=== PATIENT | female | born 1960 | race Caucasian/White ===

== ENCOUNTER 2025-05-22 13:52 | Emergency (ER) | payer MEDICAID, SELFPAY ==
[2025-05-22 13:54] VITALS: BP 125/59; PULSE 90; RESP 18; TEMP 37.1; O2SAT 95; BMI 25.0
--- NOTE | 2025-05-22 13:57 | XR_ITS ---
EXAMINATION: AP chest single view TECHNIQUE: AP portable sitting chest single view Date and time: May 22, 2025 1547 hours. Comparison December 02, 2018 INDICATIONS: Positive TB skin test FINDINGS: Mild enlargement cardiac contour Interstitial disease throughout the lungs with nodular density in the lingular segment Old left-sided rib fractures Severe osteopenia IMPRESSION: Interstitial disease throughout the lungs with 14 mm nodular density in the left midlung, tuberculosis cannot be excluded based on this examination Consider high-resolution CT chest without contrast
--- NOTE | 2025-05-22 13:58 | PD.EDADULT ---
ED General RME/HPI General Chief complaint: Shortness of Breath/Dyspnea Stated complaint: TB R/O Time Seen by Provider: 05/22/25 13:56 Arrival date/time: 05/22/25 13:52 CC: Chest x-ray HPI patient presents to the ER via EMS for stable vital signs from [facility] the patient had a positive on tox test is now sent for chest x-ray. Patient is asymptomatic nontoxic-appearing and not in any acute distress. Related Data Home Medications ?Medication ?Instructions ?Recorded ?Confirmed aspirin 81 mg tablet,delayed 1 tab PO DAILY 12/31/17 12/31/17 release (Aspir-Low) isoniazid 300 mg tablet 300 mg PO DAILY 12/31/17 12/31/17 paroxetine HCl 40 mg tablet 40 mg PO QDAY 12/31/17 12/31/17 simvastatin 40 mg tablet 40 mg PO QPM 12/31/17 12/31/17 ziprasidone HCl 60 mg capsule 60 mg PO BID 12/31/17 12/31/17 albuterol sulfate 90 mcg/actuation 2 puff inhalation Q4H PRN Wheezing 01/02/18 01/02/18 aerosol inhaler (Ventolin HFA) meloxicam 15 mg tablet 15 mg PO QDAY 01/02/18 01/02/18 omeprazole 20 mg capsule,delayed 20 mg PO QDAY 01/02/18 01/02/18 release quetiapine 200 mg tablet 200 mg PO BID 01/02/18 01/02/18 Previous Rx's ?Medication ?Instructions ?Recorded insulin lispro 100 unit/mL See Rx Instructions .Route 01/02/18 subcutaneous solution (Humalog .COMPLEX #10 mL U-100 Insulin) magnesium oxide 400 mg (241.3 mg 400 mg PO BID #6 tabs 01/02/18 magnesium) tablet (MagOx) metformin 850 mg tablet 850 mg PO QDAY #0 tabs 01/02/18 collagenase clostridium histo. 250 See Rx Instructions .Route 01/14/18 unit/gram topical ointment (Santyl) .COMPLEX #1 tube amoxicillin 875 mg-potassium 1 tab PO BID #14 tabs 05/22/25 clavulanate 125 mg tablet permethrin 5 % topical cream 1 applic topical Q14D 2 doses #60 05/22/25 grams Allergies Allergy/AdvReac Type Severity Reaction Status Date / Time No Known Drug Allergies Allergy Unknown Verified 01/03/18 14:16 Review of Systems Review of Systems Narrative Review of Systems: GEN: No fever, no chills, no weight loss EYES: No discharge, no visual changes, no pain HEENT: No ear pain, no congestion, no sore throat PULM: No shortness of breath, no cough, no congestion CV: No chest pain, no dyspnea on exertion, no palpitations GI: No nausea, no vomiting, no diarrhea, no pain, no constipation : No frequency, no urgency, no dysuria MUSC/SKEL: No joint pain, no back pain SKIN: No rash PSYCH: No hallucinations, no depression HEME/LYMPH: No easy bleeding or bruising tendencies NEURO: No weakness, no headache Past Medical History Past Medical History CARDIAC: Positive Cardiac Disorders (HYPERLIPIDEMIA); Negative Congestive Heart Failure RESPIRATORY: Negative Chronic Obstructive Pulmonary Disease (COPD) GENITOURINARY: Negative Renal Disease ENDOCRINE: Positive Diabetes Mellitus Type 2; Negative Diabetes Mellitus Type 1 PSYCHO/SOCIAL: Positive Schizophrenia and Depression OTHER HISTORY: Negative Blood Transfusions Surgical History SURGICAL: Positive Section Social History SMOKING STATUS: Current every day smoker ED Exam Narrative Physical exam: [General: Not in any acute distress Head normocephalic HEENT: Within acceptable limits Neck is supple nontender Chest equal chest rise nontender to palpation Respiratory: Clear to auscultation no wheezes crackles or rubs CV: Rate rhythm is regular no murmurs rubs or clicks Abdomen is distended secondary to body habitus soft nontender no masses positive bowel sounds all 4 quadrants Back: No CVA tenderness no spinous process tenderness from cervical spine thoracic and lumbar spine Skin: Intact no petechiae rash induration ulceration or crepitus Extremities: Moving all extremity against resistance cap refill less than 2 seconds neurosensory intact Neuro: Awake alert oriented x3 Glascow coma 15 no focal deficits] Course Course Course Narrative: CT shows right upper lobe pneumonia unfortunately there is a question of whether there is a potential tuberculosis. At this time the QuantiFERON will be sent, patient will be discharged on antibiotics to have public health nurse follow-up on this patient. Quality Measures none Orders Category Date Time Status CT chest wo con Stat Exams 05/22/25 15:54 Completed XR chest 2V Stat Exams 05/22/25 13:57 Completed Quantiferon-TB* Stat Lab 05/22/25 18:40 Received Vital Signs Vital signs: Vital Signs Temperature 98.8 F 05/22/25 13:54 Pulse Rate 90 05/22/25 13:54 Respiratory Rate 18 05/22/25 13:54 Blood Pressure 125/59 L 05/22/25 13:54 Pulse Oximetry (%) 95 05/22/25 13:54 Oxygen Delivery Method Room Air 05/22/25 13:54 Discharge Plan Plan Patient Disposition: HOME (Self Care) Patient condition on transfer: Stable Prescriptions/Referrals Prescriptions/Med Rec: New permethrin 5 % cream 1 applic topical Q14D Qty: 60 0RF Rx Instructions: apply second treatment 14 days after first treatment if live lice remain amoxicillin-pot clavulanate 875-125 mg tablet 1 tab PO BID Qty: 14 0RF No Action aspirin [Aspir-Low] 81 mg Tablet,Delayed Release (Dr/Ec) 1 tab PO DAILY simvastatin 40 mg Tablet 40 mg PO QPM isoniazid 300 mg Tablet 300 mg PO DAILY paroxetine HCl 40 mg Tablet 40 mg PO QDAY ziprasidone HCl 60 mg Capsule 60 mg PO BID omeprazole 20 mg Capsule,Delayed Release(Dr/Ec) 20 mg PO QDAY albuterol sulfate [Ventolin HFA] 90 mcg/actuation Hfa Aerosol Inhaler 2 puff INHALATION Q4H PRN (Reason: Wheezing) meloxicam 15 mg Tablet 15 mg PO QDAY quetiapine 200 mg Tablet 200 mg PO BID metformin 850 mg Tablet 850 mg PO QDAY Qty: 0 0RF insulin lispro [Humalog U-100 Insulin] 100 unit/mL Solution See Rx Instructions .ROUTE .COMPLEX Qty: 10 0RF Rx Instructions: per insulin sliding scale protocol magnesium oxide [MagOx] 400 mg tablet 400 mg PO BID Qty: 6 0RF Rx Instructions: administer with meals collagenase clostridium histo. [Santyl] 250 unit/gram Ointment See Rx Instructions .ROUTE .COMPLEX Qty: 1 0RF Rx Instructions: use santyl to change right foot Drsg, Referrals: No Primary/Family,Physician [Primary Care Provider] - In 1 week Problem List Clinical Impression: Pneumonia, Scabies Patient/Caregiver Discharge Instructions Education Materials: Treating Pneumonia, Scabies Additional Instructions: Take the medications as prescribed, use the creams for the scabies. Print Language: Thai Stand Alone Forms: Lillian Award Info., Patient Portal Info Letter PA/IRON INSTALLER Supervising Physician ANNETTE/IRON INSTALLER Supervising Physician: Britton Reece ENP MDM Clinical Information Provided by: patient and EMS Medical Records reviewed [facility] and EMS Meds/Rx considered, not ordered None Labs/Rad/Tests considered, not ordered None Chronic Illness/Social Conditions Explain: Diabetes hyperlipidemia depression schizophrenia
[2025-05-22 14:00] VITALS: PULSE 102; O2SAT 94
--- NOTE | 2025-05-22 15:54 | XR_ITS ---
Examination: CT chest, without intravenous contrast. Sagittal and coronal 2-D reconstructions. Exam date and time: May 22, 2025, 1708 hours, comparison May 26, 2018 INDICATIONS: Positive PPD test today CTDI:vol (mGy) 12.4 DLP: (mGycm) 465 Technique: Multiple 3.0 mm axial sections of the chest to been obtained. Bone and lung density settings are obtained. Sagittal and coronal 2-D reconstructions have been obtained. Low dose protocols were performed. One or more of the following dose reduction techniques were used; automated exposure control, adjustment of the mA and/or KV according to patient size, use of iterative reconstruction technique. Findings: No thoracic aortic aneurysmal dilatation Pulmonary artery segment, main pulmonary artery measures 34 mm Mild enlargement cardiac contour No paratracheal or tracheobronchial or bronchopulmonary adenopathy. Biapical parenchymal likely scarring Soft areas of pneumonia, for instance image 91 in the right upper lobe No pleural disease Severe osteopenia No visualized liver lesion End-stage left hydronephrotic sac IMPRESSION: Early pneumonia right upper lobe, differential would include active tuberculosis End-stage left hydronephrotic sac, consider CT abdomen pelvis post intravenous contrast follow-up
[2025-05-22 17:18] VITALS: BP 137/91; PULSE 87; RESP 18; TEMP 36.5; O2SAT 96
[2025-05-22 18:44] VITALS: BP 121/85; PULSE 102; RESP 18; TEMP 36.5; O2SAT 95
[2025-05-22 18:44] LABS: Quantiferon-TB* See Sep Rpt
[2025-05-22 19:21] VITALS: BP 121/85; PULSE 95; RESP 16; TEMP 36.4; O2SAT 95
--- NOTE | 2025-05-22 19:24 | PC.NURSE ---
ems on site to transport patient back to her place of living. Pt currently is sitting at bedside, alert, oriented x4, VSS.
== END 2025-05-22 20:07 | disposition home or self-care (01) ==
PROVIDERS: Registered Nurse General Practice; Emergency Provider Family Medicine
DX: J18.9 Pneumonia, unspecified organism (principal); B86 Scabies; E11.9 Type 2 diabetes mellitus without complications; E78.5 Hyperlipidemia, unspecified; F20.9 Schizophrenia, unspecified; F32.A Depression, unspecified
CPT/HCPCS: 71046; 71250; 86480; 99283